=== PATIENT | female | born 1935 | race African-American/Black ===

== ENCOUNTER 2021-06-24 12:26 | Inpatient (IN) | payer MEDICARE, OTHER ==
[2021-06-24 15:19] LABS: CHLORIDE 113 mmol/L (98-107); SODIUM 139 mmol/L (136-145)
[2021-06-24 15:21] LABS: CALCIUM 9.3 mg/dL (8.5-10.1); GLUCOSE,RANDOM 79 mg/dL (74-106)
[2021-06-24 15:22] LABS: ALBUMIN 3.3 g/dl (3.4-5.0); BLOOD UREA NITROGEN 81.4 mg/dL (7-18); CO2 22 mmol/L (21-32); MAGNESIUM 2.8 mg/dL (1.8-2.4)
[2021-06-24 15:25] LABS: CREATININE 2.1 mg/dL (0.55-1.3); SGOT/AST 38 U/L (15-37); SGPT/ALT 34 U/L (13-61)
[2021-06-24 15:26] LABS: BILIRUBIN,TOTAL 0.2 mg/dL (0.2-1); TOT PROT 8.3 g/dl (6.4-8.2)
[2021-06-24 15:28] LABS: ALK PHOS 92 U/L (45-117)
[2021-06-24 15:29] LABS: ANION GAP 4 MMOL/L (8-16)
[2021-06-24] MEDS ORDERED: DEXTROSE 10%-WATER 500 ML INFUS.BAG IV ONE (15:39)
[2021-06-24] MEDS ORDERED: INSULIN REGULAR HUMAN 100 UNITS/ML *VIAL IVPUSH ONE (15:39)
[2021-06-24] MEDS ORDERED: FUROSEMIDE 40 MG/4 ML INJECTABLE VIAL IVPUSH ONE (15:39)
[2021-06-24] MEDS ORDERED: ALBUTEROL SO4 0.042% IH SOL 1.25 MG/3 ML VIAL.NEB NEB ONE (15:39)
[2021-06-24] MEDS ORDERED: SODIUM BICARBONATE 4.2% 5 MEQ/10 ML DISP.SYRIN IVPUSH ONE ×2 (15:40→16:13)
[2021-06-24] MEDS ORDERED: SODIUM CHLORIDE 1,000 ML IV ONE (15:50)
[2021-06-24] MEDS ORDERED: SODIUM ZIRCONIUM CYCLOSILICATE (LOKELMA) 5 GM PACKET PO ONE ×2 (16:04→20:57)
[2021-06-24] MEDS ORDERED: SODIUM ZIRCONIUM CYCLOSILICATE (LOKELMA) 5 GM PACKET ONE (16:13)
[2021-06-24] MEDS ORDERED: ALBUTEROL SO4 0.5 % INH SOLN 2.5 MG/0.5 ML VIAL.NEB. NEB ONE (16:13)
[2021-06-24] MEDS ORDERED: INSULIN REGULAR HUMAN 100 UNITS/ML *VIAL ONE (16:13)
[2021-06-24] MEDS ORDERED: DEXTROSE 50%-WATER - 25 GM/50 ML VIAL ONE (16:22)
[2021-06-24] MEDS ORDERED: ALBUTEROL SO4 HFA INHALER IH ONE ×2 (16:24)
[2021-06-24] MEDS ORDERED: DEXTROSE 50%-WATER - 25 GM/50 ML VIAL IVPUSH ONE (16:24)
[2021-06-24 17:05] LABS: BASO % 0.6 % (0-2.0); EOS % 8.2 % (0-4.5); HEMATOCRIT 31.1 % (32.4-45.2); HEMOGLOBIN 9.7 GM/dL (10.7-15.3); MCH 28.4 pg (25.7-33.7); MCHC 31.2 g/dl (32.0-36.0); MEAN CELL VOLUME 90.8 fl (80-96); MEAN PLT VOLUME 9.2 fl (7.5-11.1); MONO % 10.2 % (3.8-10.2); PLATELET COUNT 289 10^3/uL (134-434); RBC 3.42 M/mm3 (3.60-5.2); RDW 17.2 % (11.6-15.6)
[2021-06-24 17:50] LABS: EPI CELLS 9 /uL (0-25.1); HYALINE CASTS 1 /uL (0-3.1); URINE APPEARANCE CLEAR; URINE BACTERIA 13 /uL (0-1359); URINE BILIRUBIN NEGATIVE (NEGATIVE); URINE COLOR YELLOW; URINE GLUCOSE (UA) NEGATIVE (NEGATIVE); URINE KETONE NEGATIVE (NEGATIVE); URINE LEUK ESTERASE TRACE (NEGATIVE); URINE NITRITE NEGATIVE (NEGATIVE); URINE PROTEIN NEGATIVE (NEGATIVE); URINE RBC 4 /uL (0-23.9); URINE UROBILINOGEN 0.2 mg/dL (0.2-1.0); URINE WBC 11 /uL (0-25.8)
[2021-06-24] MEDS ORDERED: SODIUM CHLORIDE 1,000 ML IV SCH (18:30)
[2021-06-24 19:06] LABS: CALCIUM 8.7 mg/dL (8.5-10.1)
[2021-06-24 19:07] LABS: BLOOD UREA NITROGEN 76.8 mg/dL (7-18)
[2021-06-24 19:10] LABS: CREATININE 2.2 mg/dL (0.55-1.3)
[2021-06-24] MEDS ORDERED: HEPARIN NA (PORCINE) 5,000 UNITS/ML 1ML VIAL ONE (20:57)
[2021-06-24] MEDS: HEPARIN NA (PORCINE) 5,000 UNITS/ML 1ML VIAL SQ SCH (21:34)
[2021-06-24] MEDS: INSULIN SLIDING SCALE (NOVOLOG) 1 VIAL SQ SCH (21:35)
[2021-06-25] MEDS ORDERED: ACETAMINOPHEN 325 MG TABLET (FP) PO PRN ×2 (03:29→16:32)
[2021-06-25] MEDS ORDERED: ACETAMINOPHEN 325 MG TABLET (FP) ONE (03:36)
[2021-06-25] MEDS: HEPARIN NA (PORCINE) 5,000 UNITS/ML 1ML VIAL SQ SCH ×3 (06:43→22:15)
[2021-06-25] MEDS: INSULIN SLIDING SCALE (NOVOLOG) 1 VIAL SQ SCH ×4 (07:51→22:14)
[2021-06-25 08:07] LABS: HEMATOCRIT 27.6 % (32.4-45.2); MCH 28.8 pg (25.7-33.7); MCHC 32.5 g/dl (32.0-36.0); MEAN CELL VOLUME 88.6 fl (80-96); MEAN PLT VOLUME 8.9 fl (7.5-11.1); PLATELET COUNT 248 10^3/uL (134-434); RBC 3.12 M/mm3 (3.60-5.2); RDW 17.1 % (11.6-15.6); WHITE BLOOD COUNT 4.9 K/mm3 (4.0-10.0)
[2021-06-25 08:19] LABS: CALCIUM 8.6 mg/dL (8.5-10.1)
[2021-06-25 08:20] LABS: BLOOD UREA NITROGEN 59.1 mg/dL (7-18); MAGNESIUM 2.3 mg/dL (1.8-2.4)
[2021-06-25 08:23] LABS: CREATININE 1.8 mg/dL (0.55-1.3); PHOSPHOROUS 3.2 mg/dL (2.5-4.9)
[2021-06-25 08:24] LABS: BILIRUBIN,TOTAL 0.2 mg/dL (0.2-1); TOT PROT 7.3 g/dl (6.4-8.2)
[2021-06-25] MEDS ORDERED: SODIUM CHLORIDE 1,000 ML IV SCH (09:15)
[2021-06-25 11:55] LABS: RETICULOCYTES 0.92 % (0.5-1.5)
[2021-06-25 13:08] LABS: SARS-CoV-2 NAA Not Detected (Not Detected)
[2021-06-25] MEDS ORDERED: amLODIPine BESYLATE 5 MG TABLET (FP) ONE (13:37)
[2021-06-25] MEDS ORDERED: POLYETHYLENE GLYCOL (HEALTHYLAX) 3350 17 GM PACKET ONE (13:37)
[2021-06-25] MEDS: POLYETHYLENE GLYCOL (HEALTHYLAX) 3350 17 GM PACKET PO SCH ×2 (13:45→22:15)
[2021-06-25] MEDS: amLODIPine BESYLATE 5 MG TABLET (FP) PO SCH (13:45)
[2021-06-25 13:59] LABS: BLOOD UREA NITROGEN 51.7 mg/dL (7-18)
[2021-06-25 14:02] LABS: CREATININE 1.7 mg/dL (0.55-1.3)
[2021-06-25] MEDS ORDERED: HEPARIN NA (PORCINE) 5,000 UNITS/ML 1ML VIAL ONE (14:10)
[2021-06-25] MEDS ORDERED: SODIUM ZIRCONIUM CYCLOSILICATE (LOKELMA) 5 GM PACKET PO ONE ×2 (14:17→16:04)
[2021-06-25] MEDS ORDERED: SODIUM ZIRCONIUM CYCLOSILICATE (LOKELMA) 5 GM PACKET ONE (14:21)
[2021-06-25] MEDS: SODIUM CHLORIDE 1,000 ML IV SCH (17:50)
[2021-06-26] MEDS: POLYETHYLENE GLYCOL (HEALTHYLAX) 3350 17 GM PACKET PO SCH ×3 (02:25→21:43)
[2021-06-26] MEDS ORDERED: SODIUM ZIRCONIUM CYCLOSILICATE (LOKELMA) 5 GM PACKET PO SCH ×2 (05:56→10:00)
[2021-06-26] MEDS: HEPARIN NA (PORCINE) 5,000 UNITS/ML 1ML VIAL SQ SCH ×3 (06:19→21:43)
[2021-06-26] MEDS: INSULIN SLIDING SCALE (NOVOLOG) 1 VIAL SQ SCH ×4 (06:28→21:40)
[2021-06-26 09:10] LABS: HEMATOCRIT 27.6 % (32.4-45.2); HEMOGLOBIN 8.9 GM/dL (10.7-15.3); MCHC 32.2 g/dl (32.0-36.0); MEAN PLT VOLUME 8.7 fl (7.5-11.1); PLATELET COUNT 257 10^3/uL (134-434); RBC 3.07 M/mm3 (3.60-5.2); RDW 16.6 % (11.6-15.6); WHITE BLOOD COUNT 5.4 K/mm3 (4.0-10.0)
[2021-06-26 09:19] LABS: CALCIUM 8.5 mg/dL (8.5-10.1)
[2021-06-26 09:20] LABS: BLOOD UREA NITROGEN 37.2 mg/dL (7-18)
[2021-06-26 09:23] LABS: CREATININE 1.6 mg/dL (0.55-1.3)
[2021-06-26] MEDS: amLODIPine BESYLATE 5 MG TABLET (FP) PO SCH (10:33)
[2021-06-26] MEDS: SODIUM CHLORIDE 1,000 ML IV SCH ×2 (10:33→17:44)
[2021-06-26 14:00] LABS: CALCIUM 8.7 mg/dL (8.5-10.1)
[2021-06-26 14:01] LABS: BLOOD UREA NITROGEN 40.6 mg/dL (7-18)
[2021-06-26 14:04] LABS: CREATININE 1.7 mg/dL (0.55-1.3)
[2021-06-27] MEDS: HEPARIN NA (PORCINE) 5,000 UNITS/ML 1ML VIAL SQ SCH ×2 (06:09→14:23)
[2021-06-27] MEDS: INSULIN SLIDING SCALE (NOVOLOG) 1 VIAL SQ SCH ×4 (06:09→21:26)
[2021-06-27 07:56] LABS: HEMATOCRIT 25.4 % (32.4-45.2); HEMOGLOBIN 8.4 GM/dL (10.7-15.3); MEAN PLT VOLUME 8.5 fl (7.5-11.1); PLATELET COUNT 232 10^3/uL (134-434); RBC 2.89 M/mm3 (3.60-5.2); RDW 16.2 % (11.6-15.6); WHITE BLOOD COUNT 5.4 K/mm3 (4.0-10.0)
[2021-06-27 08:14] LABS: BLOOD UREA NITROGEN 36.2 mg/dL (7-18); CALCIUM 8.1 mg/dL (8.5-10.1); MAGNESIUM 1.9 mg/dL (1.8-2.4)
[2021-06-27 08:18] LABS: CREATININE 1.7 mg/dL (0.55-1.3); PHOSPHOROUS 2.8 mg/dL (2.5-4.9)
[2021-06-27] MEDS ORDERED: SODIUM ZIRCONIUM CYCLOSILICATE (LOKELMA) 10 GM PACKET PO SCH (10:00)
[2021-06-27] MEDS: amLODIPine BESYLATE 5 MG TABLET (FP) PO SCH (11:45)
[2021-06-27] MEDS: POLYETHYLENE GLYCOL (HEALTHYLAX) 3350 17 GM PACKET PO SCH ×2 (11:45→21:26)
[2021-06-27] MEDS ORDERED: METOLAZONE 2.5 MG TABLET (FP) PO ONE (15:39)
[2021-06-27] MEDS ORDERED: SODIUM ZIRCONIUM CYCLOSILICATE (LOKELMA) 5 GM PACKET PO ONE (15:45)
[2021-06-27] MEDS: SODIUM CHLORIDE 1,000 ML IV SCH (16:42)
[2021-06-27] MEDS: SODIUM ZIRCONIUM CYCLOSILICATE (LOKELMA) 5 GM PACKET PO SCH (16:42)
[2021-06-27] MEDS: SENNOSIDES 8.6MG TABLET (FP) PO SCH (21:27)
[2021-06-28] MEDS ORDERED: BISACODYL 10 MG SUPP.RECT PR ONE (04:26)
[2021-06-28] MEDS: INSULIN SLIDING SCALE (NOVOLOG) 1 VIAL SQ SCH ×4 (06:04→21:44)
[2021-06-28 09:41] LABS: VENOUS BASE EXCESS -7.6 mmol/L (-2-2); VENOUS O2 SATURATION 63.4 % (70-80); VENOUS PCO2 41.3 mmHg (38-52); VENOUS PH 7.276 (7.310-7.410)
[2021-06-28 09:43] LABS: BASO % 0.7 % (0-2.0); EOS % 6.8 % (0-4.5); HEMATOCRIT 29.1 % (32.4-45.2); HEMOGLOBIN 9.1 GM/dL (10.7-15.3); LYMPH % 21.7 % (8-40); MCH 28.2 pg (25.7-33.7); MCHC 31.4 g/dl (32.0-36.0); MEAN CELL VOLUME 89.6 fl (80-96); MONO % 8.3 % (3.8-10.2); NEUT % 62.5 % (42.8-82.8); PLATELET COUNT 269 10^3/uL (134-434); RBC 3.25 M/mm3 (3.60-5.2); RDW 16.5 % (11.6-15.6)
[2021-06-28 09:58] LABS: CALCIUM 8.9 mg/dL (8.5-10.1)
[2021-06-28 09:59] LABS: ALBUMIN 3.1 g/dl (3.4-5.0)
[2021-06-28 10:02] LABS: BLOOD UREA NITROGEN 32.3 mg/dL (7-18)
[2021-06-28 10:03] LABS: TOT PROT 7.7 g/dl (6.4-8.2)
[2021-06-28 10:05] LABS: CREATININE 1.6 mg/dL (0.55-1.3)
[2021-06-28 10:06] LABS: BILIRUBIN,TOTAL 0.3 mg/dL (0.2-1)
[2021-06-28] MEDS: SODIUM ZIRCONIUM CYCLOSILICATE (LOKELMA) 5 GM PACKET PO SCH (10:15)
[2021-06-28] MEDS: POLYETHYLENE GLYCOL (HEALTHYLAX) 3350 17 GM PACKET PO SCH ×2 (10:15→21:45)
[2021-06-28] MEDS: amLODIPine BESYLATE 5 MG TABLET (FP) PO SCH (10:17)
[2021-06-28] MEDS ORDERED: SODIUM ZIRCONIUM CYCLOSILICATE (LOKELMA) 5 GM PACKET PO SCH (11:45)
[2021-06-28] MEDS: SODIUM CHLORIDE 0.45% 1,000 ML IV SCH ×2 (12:15→19:05)
[2021-06-28] MEDS ORDERED: SODIUM ZIRCONIUM CYCLOSILICATE (LOKELMA) 5 GM PACKET PO ONE (13:00)
[2021-06-28 16:21] VITALS: BMI 25.2
[2021-06-28] MEDS: SENNOSIDES 8.6MG TABLET (FP) PO SCH (21:44)
[2021-06-29] MEDS: INSULIN SLIDING SCALE (NOVOLOG) 1 VIAL SQ SCH ×2 (06:23→11:55)
[2021-06-29] MEDS: SODIUM CHLORIDE 0.45% 1,000 ML IV SCH (06:54)
[2021-06-29 09:02] VITALS: BP 142/66; PULSE 82; TEMP 98.4
[2021-06-29] MEDS: SODIUM ZIRCONIUM CYCLOSILICATE (LOKELMA) 5 GM PACKET PO SCH (09:32)
[2021-06-29] MEDS: amLODIPine BESYLATE 5 MG TABLET (FP) PO SCH (09:32)
[2021-06-29] MEDS: POLYETHYLENE GLYCOL (HEALTHYLAX) 3350 17 GM PACKET PO SCH (09:33)
[2021-06-29 10:45] LABS: ALBUMIN 3.1 g/dl (3.4-5.0); BLOOD UREA NITROGEN 32.4 mg/dL (7-18); CALCIUM 9.3 mg/dL (8.5-10.1)
[2021-06-29 10:48] LABS: CREATININE 1.7 mg/dL (0.55-1.3)
[2021-06-29 10:50] LABS: BILIRUBIN,TOTAL 0.3 mg/dL (0.2-1); TOT PROT 7.8 g/dl (6.4-8.2)
[2021-06-29] MEDS ORDERED: amLODIPine BESYLATE 10 MG TABLET (FP) PO SCH (11:35)
== END 2021-06-29 15:03 | disposition home or self-care (01) | DRG 641 ==
LOC: JER 12:26 → JERBED 17:13 → UNDOADMOB 17:13 → OBSVTOIN 17:15 → JERBED 06-25 16:31 → J5S 06-25 16:31 → JERBED 06-29 10:14 → UNDOADMOB 06-29 10:14 → J5S 06-29 10:14
PROVIDERS: ADMIT Internal Medicine; ATTEND Internal Medicine
DX: E87.5 Hyperkalemia (principal); N17.9 Acute kidney failure, unspecified; I12.9 Hypertensive chronic kidney disease with stage 1 through stage 4 chronic kidney disease, or unspecified chronic kidney disease; E11.22 Type 2 diabetes mellitus with diabetic chronic kidney disease; N18.9 Chronic kidney disease, unspecified; Z79.4 Long term (current) use of insulin; E86.1 Hypovolemia; D64.9 Anemia, unspecified; D72.10 Eosinophilia, unspecified; K59.00 Constipation, unspecified
CPT/HCPCS: 36415; 71045-TC-FY; 80048; 80053; 81003; 82728; 82803; 82962; 83540; 83550; 83735; 84100; 84132; 84484; 85025; 85027; 85045; 93005; 93010; 99285-25; C9803; G0378; J1644; U0003; U0005

== ENCOUNTER 2024-10-25 16:33 | Emergency (ER) | payer OTHER ==
[2024-10-25 16:42] VITALS: BP 126/54; PULSE 81; RESP 20; TEMP 98.8; BMI 27.3
[2024-10-25 17:38] LABS: ABSOLUTE IMMATURE GRANULOCYTES 0.03 x10^3/uL (0.0-0.031); BASOPHILS # 0.03 x10^3/uL (0.01-0.08); EOSINOPHIL % 3.5 % (0.7-5.8); EOSINOPHILS # 0.28 x10^3/uL (0.04-0.36); MCHC 30.6 g/dl (32.2-35.5); MEAN CELL VOLUME 94.2 fl (79.4-94.8); MEAN PLT VOLUME 10.0 fl (9.4-12.3); MONOCYTE # 0.82 x10^3/uL (0.24-0.86); MONOCYTE % 10.2 % (4.7-12.5); RDW 14.3 % (12.5-17.0)
[2024-10-25 18:07] LABS: CO2 25.0 mmol/L (21-32); GLUCOSE,RANDOM 191.0 mg/dL (74-106)
[2024-10-25 18:10] LABS: CREATININE 2.4 mg/dL (0.55-1.3); SGOT/AST 25.0 U/L (15-37); SGPT/ALT 21.0 U/L (13-61)
[2024-10-25 18:13] LABS: TOT PROT 7.1 g/dl (6.4-8.2)
[2024-10-25 18:14] LABS: ALK PHOS 102.0 U/L (45-117)
== END 2024-10-25 19:29 | disposition home or self-care (01) ==
LOC: JER 16:33
DX: I12.9 Hypertensive chronic kidney disease with stage 1 through stage 4 chronic kidney disease, or unspecified chronic kidney disease (principal); E11.22 Type 2 diabetes mellitus with diabetic chronic kidney disease; N18.9 Chronic kidney disease, unspecified; R53.83 Other fatigue; E87.5 Hyperkalemia; N17.9 Acute kidney failure, unspecified
CPT/HCPCS: 36415; 80053; 82550; 83735; 84484; 85025; 93005; 93010; 99284-25